=== PATIENT | female | born 1950 ===

== ENCOUNTER 2016-10-18 11:48 | Emergency (ER) | payer OTHER ==
[2016-10-18 12:08] VITALS: O2SAT 98
--- NOTE | 2016-10-18 13:48 | ED PDOC ---
HPI: General Adult Chief Complaint (Provider): sent by pcp for abn ekg History Per: Patient History/Exam Limitations: no limitations <Bunny Puri - Last Filed: 10/21/16 15:22> <Rangel Claudio - Last Filed: 10/22/16 09:12> Time Seen by Provider: 10/18/16 12:24 Chief Complaint (Nursing): Abnormal Labs Additional Complaint(s): 65 year old female with no significant past medical history sent to ED by PCP for abnormal ECG. Never had ECG in the past, no hx of SC or heart disease. No history of hospitalization. She denies any chest pain, abdominal pain, nausea or dizziness at present. She feels well. Takes naproxen/tylenol for hip pain that is chronic. No history of HTN, HLD, DM. (Bunny Puri) Supervising Attending Note <Bunny Puri - Last Filed: 10/21/16 15:22> - Supervising Attending Note The Documented history was done by the: Physician Pest Technician, Attending Physician The documented physical exam was done by the: Physician Pest Technician, Attending Physician The documented procedures were done by the: Physician Pest Technician, Attending Physician - Attestation: I have personally seen and examined this patient.: Yes I have fully participated in the care of the patient.: Yes I have reviewed all pertinent clinical information, including history, physical exam and plan: Yes <Rangel Claudio - Last Filed: 10/22/16 09:12> - Notes: Notes:: y/o F sent in by medical clinic for abnormal ecg, pt has no sx, all labs and trop neg advise close f/u with medical clinic (Rangel Claudio) Past Medical History - Surgical History Surgical History: No Surg Hx - Family History Family History: States: Unknown Family Hx - Living Arrangements Living Arrangements: With Family - Social History Current smoker - smoking cessation education provided: No Alcohol: None <Bunny Puri - Last Filed: 10/21/16 15:22> <Rangel Claudio - Last Filed: 10/22/16 09:12> Vital Signs: Last Vital Signs Temp 97.6 F 10/18/16 17:16 Pulse 71 10/21/16 15:22 Resp 19 10/18/16 17:16 BP 126/78 10/18/16 17:16 Pulse Ox 98 10/21/16 15:22 - Home Medications Home Medications: Ambulatory Orders Medication Instructions Recorded No Known Home Med 10/18/16 - Allergies Allergies/Adverse Reactions: Allergies Allergy/AdvReac Type Severity Reaction Status Date / Time aspirin Allergy SHORTNESS Verified 10/18/16 12:06 OF BREATH Review of Systems Constitutional: Negative for: Fever, Chills, Sweats Eyes: Negative for: Vision Change ENT: Negative for: Ear Discharge, Nose Discharge Cardiovascular: Negative for: Chest Pain, Palpitations, Orthopnea, Edema, Light Headedness Respiratory: Negative for: Cough, Shortness of Breath, SOB with Exertion Gastrointestinal: Positive for: Nausea (occasional, not now), Abdominal Pain ( with nausea, not now). Negative for: Vomiting, Diarrhea, Constipation Musculoskeletal: Positive for: Leg Pain (hips b/l, chronic) Skin: Negative for: Rash Neurological: Negative for: Weakness, Numbness, Incoordination <Bunny Puri - Last Filed: 10/21/16 15:22> Physical Exam - Reviewed Vital Signs Reviewed: Yes - Physical Exam Appears: Positive for: No Acute Distress Head Exam: Positive for: NORMAL INSPECTION Skin: Positive for: Normal Color, Warm, Dry Eye Exam: Positive for: Normal appearance ENT: Positive for: Other (poor dentition) Neck: Positive for: Normal Cardiovascular/Chest: Positive for: Regular Rate, Rhythm, Chest Non Tender. Negative for: Bradycardia, Tachycardia Respiratory: Positive for: Normal Breath Sounds. Negative for: Crackles, Rales , Rhonchi, Wheezing, Respiratory Distress Gastrointestinal/Abdominal: Positive for: Soft. Negative for: Tenderness, Distended, Guarding Extremity: Positive for: Other (cold from ankles distally). 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 Negative for: Motor/Sensory Deficits <Bunny Puri - Last Filed: 10/21/16 15:22> - Laboratory Results Result Diagrams: 10/18/16 13:30 10/18/16 13:30 - ECG ECG: Positive for: Interpreted By Me, Viewed By Me ECG Rhythm: Positive for: Sinus Rhythm, Right Bundle Branch Block (incomplete) Rate: 71 O2 Sat by Pulse Oximetry: 98 Pulse Ox Interpretation: Normal <Bunny Puri - Last Filed: 10/21/16 15:22> - Laboratory Results Result Diagrams: 10/18/16 13:30 10/18/16 13:30 <Rangel Claudio - Last Filed: 10/22/16 09:12> - Progress ED Course And Treament: rule out ACS * ekg reviewed * cbc * cmp * troponin * case d/w Dr. Claudio CBC : WNL CMP: K+:3.5 Troponin: negative Patient asymptomatic. stable for discharge above findings discussed with Dr. Claudio (Bunny Puri) Disposition <Bunny Puri - Last Filed: 10/21/16 15:22> - Patient ED Disposition Is Patient to be Admitted: No Counseled Patient/Family Regarding: Studies Performed, Diagnosis, Need For Followup - Disposition Disposition Time: 15:30 <Rangel Claudio - Last Filed: 10/22/16 09:12> - Clinical Impression Clinical Impression: ECG abnormality - Disposition Referrals: [facility] [Outside] Condition: FAIR Additional Instructions: Patient to follow up with [facility] within 1 week. Instructions: Electrocardiogram (GEN) Forms: [facility] ([facility]wana) Print Language: PAKISTANI
[2016-10-18 14:11] LABS: HEMATOCRIT 36.9 % (34.0-47.0); MEAN CELL VOLUME 95.3 fl (81.0-99.0); MEAN CORPUSCULAR HEMOGLOBIN 31.6 pg (27.0-31.0); MEAN CORPUSCULAR HGB CONC 33.1 g/dL (33.0-37.0); RED CELL DISTRIBUTION WIDTH 13.5 % (11.5-14.5); WHITE BLOOD COUNT 7.3 K/uL (4.8-10.8)
[2016-10-18 14:20] LABS: ALB/GLOB RATIO 1.2 (1.0-2.1); ALKALINE PHOSPHATASE 86 U/L (38-126); ALT/SGPT 40 U/L (9-52); AST/SGOT 30 U/L (14-36); BILIRUBIN,TOTAL 0.4 mg/dl (0.2-1.3); BLOOD UREA NITROGEN 15 mg/dl (7-17); CALCIUM 9.6 mg/dL (8.4-10.2); CARBON DIOXIDE 27 mmol/L (22-30); CHLORIDE 106 mmol/L (98-107); GFR AFRICAN-AMERICAN > 60; GLUCOSE,RANDOM 93 mg/dL (65-105); POTASSIUM 3.5 MMOL/L (3.6-5.0); SODIUM 141 mmol/l (132-148); TOTAL PROTEIN 7.4 G/DL (6.3-8.2)
[2016-10-18 17:17] VITALS: BP 126/78; RESP 19; TEMP 97.6
[2016-10-21 15:23] VITALS: PULSE 71
== END 2016-10-18 17:17 | disposition home or self-care (01) ==
LOC: H.ER 11:48
DX: R94.31 Abnormal electrocardiogram [ECG] [EKG] (principal)

== ENCOUNTER 2017-09-08 05:21 | Inpatient (IN) | payer MEDICAID, SELFPAY ==
[2017-09-08 06:20] LABS: BASO # 0.1 K/uL (0.0-0.2); BASO % 1.4 % (0.0-2.0); EOS # 0.4 K/uL (0.0-0.7); EOS % 5.7 % (0.0-4.0); HEMOGLOBIN 12.2 g/dL (12.0-16.0); LYMPH # 2.6 K/uL (1.0-4.3); MEAN CELL VOLUME 96.3 fl (81.0-99.0); MEAN CORPUSCULAR HEMOGLOBIN 32.5 pg (27.0-31.0); MEAN CORPUSCULAR HGB CONC 33.8 g/dL (33.0-37.0); MEAN PLATELET VOLUME 7.5 fl (7.2-11.7); MONO # 0.6 K/uL (0.0-0.8); NEUT # 3.3 K/uL (1.8-7.0); NEUT % 46.9 % (50.0-75.0); RBC 3.76 Mil/uL (3.80-5.20); RED CELL DISTRIBUTION WIDTH 12.9 % (11.5-14.5); WHITE BLOOD COUNT 7.1 K/uL (4.8-10.8)
[2017-09-08 06:32] LABS: BLOOD UREA NITROGEN 16 mg/dl (7-17); CALCIUM 9.5 mg/dL (8.4-10.2); GFR AFRICAN-AMERICAN > 60; GFR NON-AFRICAN AMERICAN > 60
--- NOTE | 2017-09-08 06:32 | ED PDOC ---
HPI: General Adult Time Seen by Provider: 09/08/17 05:22 Chief Complaint (Nursing): Hip Pain History Per: Patient History/Exam Limitations: no limitations Onset/Duration Of Symptoms: Days Additional Complaint(s): Patient has longstanding history of RA presenting with hip pain, worse on the right. Was told by her PMD that if the pain is worsening to come to the ER for evaluation. Denies falls, fever, swelling, chills, nausea, vomiting, diarrhea. 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), HTN ("diet controlled") - Family History Family History: States: Unknown Family Hx - Home Medications Home Medications: Ambulatory Orders Medication Instructions Recorded No Known Home Med 10/18/16 - Allergies Allergies/Adverse Reactions: Allergies Allergy/AdvReac Type Severity Reaction Status Date / Time aspirin Allergy SHORTNESS Verified 10/18/16 12:06 OF BREATH Review of Systems ROS Statement: Except As Marked, All Systems Reviewed And Found Negative Musculoskeletal: Positive for: Other (Hip pain) Physical Exam - Reviewed Nursing Documentation Reviewed: Yes Vital Signs Reviewed: Yes - Physical Exam Appears: Positive for: Well, Non-toxic, No Acute Distress Head Exam: Positive for: ATRAUMATIC, NORMAL INSPECTION, NORMOCEPHALIC Skin: Positive for: Normal Color, Warm, DRY Eye Exam: Positive for: EOMI, Normal appearance, PERRL ENT: Positive for: Normal ENT Inspection Neck: Positive for: Normal, Painless ROM Cardiovascular/Chest: Positive for: Regular Rate, Rhythm Respiratory: Positive for: CNT, Normal Breath Sounds Gastrointestinal/Abdominal: Positive for: Normal Exam, Soft Back: Positive for: Normal Inspection Extremity: Positive for: Normal ROM. Negative for: Tenderness, Pedal Edema, Deformity, Swelling Neurologic/Psych: Positive for: Alert, Oriented - Laboratory Results Result Diagrams: 09/08/17 06:15 - ECG O2 Sat by Pulse Oximetry: 100 Pulse Ox Interpretation: Normal Medical Decision Making Medical Decision MakinAM Patient to be evaluated by orthopedics for severe RA. Will get labs, xrays. Family practice aware. Disposition - Clinical Impression Clinical Impression: Rheumatoid arthritis - Disposition Referrals: Ean Brown MD [Primary Care Provider] - Disposition Time: 06:32 Condition: FAIR
[2017-09-08 06:43] LABS: INR 0.9 (0.9-1.2); PARTIAL THROMBOPLASTIN TIME 29.4 Seconds (25.6-37.1)
--- NOTE | 2017-09-08 07:03 | CP.PCM.HP ---
History of Present Illness - History of Present Illness History of Present Illness: CC: R hip pain HPI: 66 YO female with PMH of osteoarthritis, prediabetes (diet controlled) presents to [facility] ED for R hip pain and R hip surgery. Pt states that she has had b/l hip pain for years and it has worsened in the past year. Denies chest pain, dyspnea, n/v/d/c, fever and chills. MD: JULIAN PMH: osteoarthritis, prediabetes SurgH: cataract surgery FH: hx of MO in father SH: denies ETOH, smoking and illicit drug use Allergies: ASA and ibuprofen-difficulty breathing Meds: Tylenol PRN ED: Labs: 7.1>12.2/36.2<256 PT/INR/PTT: 10.0/0.9/29.4 CMP: 142/3.5, 109/24, 16/0.8, 135 Type&screen: O neg, ab neg Present on Admission - Present on Admission Any Indicators Present on Admission: No Review of Systems - Constitutional Constitutional: absent: Headache - Cardiovascular Cardiovascular: absent: Chest Pain, Dyspnea - Respiratory Respiratory: absent: Cough, Dyspnea - Gastrointestinal Gastrointestinal: absent: Abdominal Pain - Genitourinary Genitourinary: absent: Difficulty Urinating, Dysuria - Musculoskeletal Musculoskeletal: Other (B/l hip pain ) - Neurological Neurological: absent: Dizziness, Headaches Past Patient History - Past Social History Smoking Status: Never Smoked Alcohol: None Drugs: Denies Home Situation {Lives}: With Family - CARDIAC Hx Hypertension: Yes ("diet controlled") - HEENT Hx Cataracts: Yes - ENDOCRINE/METABOLIC Hx Endocrine Disorders: Yes Other/Comment: "pre diabetic" - diet controlled - MUSCULOSKELETAL/RHEUMATOLOGICAL Hx Arthritis: Yes (severe osteoarthritis of bilateral hips R>L) - GENITOURINARY/GYNECOLOGICAL Hx Genitourinary Disorders: Yes Other/Comment: Hx Bartholyn cyst - PSYCHIATRIC Hx Substance Use: No - SURGICAL HISTORY Hx Surgeries: Yes Hx Eye Surgery: Yes (for cataract) Other/Comment: Bartholin cyst removal - ANESTHESIA Hx Anesthesia: Yes Hx Anesthesia Reactions: No Hx Malignant Hyperthermia: No Meds Allergies/Adverse Reactions: Allergies Allergy/AdvReac Type Severity Reaction Status Date / Time aspirin Allergy SHORTNESS Verified 10/18/16 12:06 OF BREATH ibuprofen Allergy SHORTNESS Verified 09/08/17 08:35 OF BREATH Physical Exam - Constitutional Appears: No Acute Distress - Head Exam Head Exam: ATRAUMATIC, NORMAL INSPECTION - Eye Exam Eye Exam: EOMI, Normal appearance - ENT Exam ENT Exam: Mucous Membranes Moist - Respiratory Exam Respiratory Exam: Clear to Auscultation Bilateral. absent: Rales, Rhonchi, Wheezes - Cardiovascular Exam Cardiovascular Exam: REGULAR RHYTHM, +S1, +S2 - GI/Abdominal Exam GI & Abdominal Exam: Normal Bowel Sounds, Soft. absent: Distended, Tenderness - Extremities Exam Extremities exam: Negative for: calf tenderness, pedal edema Additional comments: R hip; dressing intact, clean and dry. Moving feet and legs, warm, good cap refill b/l - Neurological Exam Neurological exam: Alert, Oriented x3 - Psychiatric Exam Psychiatric exam: Normal Affect, Normal Mood - Skin Skin Exam: Dry, Intact, Normal Color, Warm Results - Vital Signs Recent Vital Signs: Last Vital Signs Temp 98.6 F 09/08/17 05:41 Pulse 78 09/08/17 05:41 Resp 16 09/08/17 05:41 BP 133/81 09/08/17 05:41 Pulse Ox 100 09/08/17 06:32 - Labs Result Diagrams: 09/08/17 06:15 09/08/17 06:15 Labs: Laboratory Results - last 24 hr 09/08/17 09/08/17 09/08/17 06:00 06:15 06:15 WBC 7.1 RBC 3.76 L Hgb 12.2 Hct 36.2 MCV 96.3 MCH 32.5 H MCHC 33.8 RDW 12.9 Plt Count 256 MPV 7.5 Neut % (Auto) 46.9 L Lymph % (Auto) 37.0 [place] % (Auto) 9.0 Eos % (Auto) 5.7 H Baso % (Auto) 1.4 Neut # (Auto) 3.3 Lymph # (Auto) 2.6 [place] # (Auto) 0.6 Eos # (Auto) 0.4 Baso # (Auto) 0.1 PT INR APTT Sodium 142 Potassium 3.5 L Chloride 109 H Carbon Dioxide 24 Anion Gap 13 BUN 16 Creatinine 0.8 Est GFR ( Amer) > 60 Est GFR (Non-Af Amer) > 60 Random Glucose 104 Calcium 9.5 BBK History Checked Patient has bt 09/08/17 06:15 WBC RBC Hgb Hct MCV MCH MCHC RDW Plt Count MPV Neut % (Auto) Lymph % (Auto) [place] % (Auto) Eos % (Auto) Baso % (Auto) Neut # (Auto) Lymph # (Auto) [place] # (Auto) Eos # (Auto) Baso # (Auto) PT 10.0 INR 0.9 APTT 29.4 Sodium Potassium Chloride Carbon Dioxide Anion Gap BUN Creatinine Est GFR ( Amer) Est GFR (Non-Af Amer) Random Glucose Calcium BBK History Checked Assessment & Plan - Assessment and Plan (Free Text) Assessment: Assessment/Plan: 66 YO Female with PMHx of osteoarthritis and prediabetes is admitted for R hip pain. S/p R total hip replacement POD 0 R Hip pain -chronic -Ortho on consult -s/p R total hip replacement POD 0 -Pain management: tylenol, dilaudid, and percocet Osteoarthritis -chronic, stable -pain control Prediabetes -diet controlled -stable Dvt Prox -Lovenox sc
[2017-09-08] MEDS ORDERED: ceFAZolin IV 2 gm in Dextrose 4 GM/100 ML BAG IVPB ONE (07:20)
[2017-09-08] MEDS ORDERED: GELATIN SPONGE,ABSORB/PORCINE 1 EACH SPONGE TP ONE (07:20)
[2017-09-08] MEDS ORDERED: Bacitracin Ointment 30 GM TUBE ONE (07:20)
[2017-09-08] MEDS ORDERED: Thrombin Topical 5,000 Int Units Spray Kit ONE (07:20)
[2017-09-08] MEDS ORDERED: Midazolam 2 MG/2 ML VIAL ONE (07:34)
[2017-09-08] MEDS ORDERED: Propofol 10 mg/ml Inj (20 ML) ONE (07:34)
[2017-09-08] MEDS ORDERED: Lidocaine 1% 5ml Abboject IV ONE (07:35)
[2017-09-08] MEDS ORDERED: Lidocaine 4% (Laryng-O-Jet) Kit MM ONE (07:35)
[2017-09-08] MEDS ORDERED: Succinylcholine 200 mg/10 ml Inj IV ONE (07:35)
[2017-09-08] MEDS ORDERED: Rocuronium 10 mg/ml (5 ml) ONE ×2 (07:37→10:32)
[2017-09-08] MEDS ORDERED: ePHEDrine 50 mg/ml Inj ONE ×2 (07:37→11:45)
[2017-09-08] MEDS ORDERED: Phenylephrine 10 mg/ml Inj ONE (07:37)
[2017-09-08] MEDS ORDERED: Neostigmine 1:1000 (1 mg/ml) Inj ONE (07:43)
--- NOTE | 2017-09-08 07:43 | CP.PCM.CON ---
History of Present Illness - History of Present Illness History of Present Illness: Orthopedic consultation Dr. Choi 66F complains of severe right hip pain, worsening, with inability to ambulate without severe pain, presents to ER for worsening pain. No recent illness, no history of bleeding disorder or blood clots or stents. Patient has prior conservative mgmt of DJD of hip with continued pain. Risks/benefits/alternatives of total hip replacement explained to patient by Dr. Choi, patient verbalized understanding and consents to procedure. Review of Systems - Review of Systems All systems: reviewed and no additional remarkable complaints except - Musculoskeletal Musculoskeletal: As Per HPI Past Patient History - Past Medical History & Family History Past Medical History?: Yes - Past Social History Smoking Status: Never Smoked - CARDIAC Hx Hypertension: Yes ("diet controlled") - HEENT Hx Cataracts: Yes - ENDOCRINE/METABOLIC Hx Endocrine Disorders: Yes Other/Comment: "pre diabetic" - diet controlled - MUSCULOSKELETAL/RHEUMATOLOGICAL Hx Arthritis: Yes (severe osteoarthritis of bilateral hips R>L) - GENITOURINARY/GYNECOLOGICAL Hx Genitourinary Disorders: Yes Other/Comment: Hx Bartholyn cyst - PSYCHIATRIC Hx Substance Use: No - SURGICAL HISTORY Hx Surgeries: Yes Hx Eye Surgery: Yes (for cataract) Other/Comment: Bartholin cyst removal - ANESTHESIA Hx Anesthesia: Yes Hx Anesthesia Reactions: No Hx Malignant Hyperthermia: No Meds Allergies/Adverse Reactions: Allergies Allergy/AdvReac Type Severity Reaction Status Date / Time aspirin Allergy SHORTNESS Verified 10/18/16 12:06 OF BREATH Physical Exam - Constitutional Appears: Well, No Acute Distress - Respiratory Exam Respiratory Exam: NORMAL BREATHING PATTERN - Extremities Exam Additional comments: calves soft NT neg homans +ROM ankle/toes sensation intact +DP/PT pulses - Neurological Exam Neurological exam: Alert, Oriented x3 - Psychiatric Exam Psychiatric exam: Normal Affect, Normal Mood - Skin Skin Exam: Dry, Intact, Normal Color, Warm Results - Vital Signs Recent Vital Signs: Last Vital Signs Temp 97.7 F 09/08/17 07:18 Pulse 78 09/08/17 05:41 Resp 16 09/08/17 05:41 BP 133/81 09/08/17 05:41 Pulse Ox 100 09/08/17 06:32 - Labs Result Diagrams: 09/08/17 06:15 09/08/17 06:15 Labs: Laboratory Results - last 24 hr 09/08/17 09/08/17 09/08/17 06:00 06:15 06:15 WBC 7.1 RBC 3.76 L Hgb 12.2 Hct 36.2 MCV 96.3 MCH 32.5 H MCHC 33.8 RDW 12.9 Plt Count 256 MPV 7.5 Neut % (Auto) 46.9 L Lymph % (Auto) 37.0 [place] % (Auto) 9.0 Eos % (Auto) 5.7 H Baso % (Auto) 1.4 Neut # (Auto) 3.3 Lymph # (Auto) 2.6 [place] # (Auto) 0.6 Eos # (Auto) 0.4 Baso # (Auto) 0.1 PT INR APTT Sodium 142 Potassium 3.5 L Chloride 109 H Carbon Dioxide 24 Anion Gap 13 BUN 16 Creatinine 0.8 Est GFR ( Amer) > 60 Est GFR (Non-Af Amer) > 60 Random Glucose 104 Calcium 9.5 BBK History Checked Patient has bt 09/08/17 06:15 WBC RBC Hgb Hct MCV MCH MCHC RDW Plt Count MPV Neut % (Auto) Lymph % (Auto) [place] % (Auto) Eos % (Auto) Baso % (Auto) Neut # (Auto) Lymph # (Auto) [place] # (Auto) Eos # (Auto) Baso # (Auto) PT 10.0 INR 0.9 APTT 29.4 Sodium Potassium Chloride Carbon Dioxide Anion Gap BUN Creatinine Est GFR ( Amer) Est GFR (Non-Af Amer) Random Glucose Calcium BBK History Checked Assessment & Plan (1) Primary osteoarthritis of right hip Assessment and Plan: NPO for OR low risk as per last pre op eval at [facility] d/w Dr. Choi, agrees with above Status: Acute
[2017-09-08] MEDS ORDERED: Tranexamic Acid 1,000 MG in Sodium Chloride 0.9% 100 ML IVPB SCH (08:00)
[2017-09-08] MEDS ORDERED: Morphine 1 mg/ml preservative-free Inj(Duramorph) ONE (08:06)
--- NOTE | 2017-09-08 08:17 | RAD ---
PROCEDURE: HISTORY: R hip pain, hx of arthritis COMPARISON: 12/28/2017 TECHNIQUE: AP view of the pelvis and applicable frog leg views obtained. FINDINGS: . Bilateral superolateral hip joint space narrowing: Bilateral superolateral and lesser inferomedial acetabular spurring. Bilateral coalescence of sub chondral cystic changes present. There is mild prominence and cortical thickening of the right iliopectineal line - more conspicuous on this exam than before and mild right acetabular protrusio. No fracture or dislocation appreciated. Inferior lumbar spine spurring Stool retention. IMPRESSION: Bilateral hip arthrosis. No fracture or dislocation appreciated. Right acetabular protrusio and mild right iliopectineal line thickening . Paget's disease not excluded
[2017-09-08] MEDS ORDERED: HYDROmorphone 0.5 mg/0.5 ml ISec IVP PRN (08:23)
[2017-09-08] MEDS ORDERED: Lactated Ringer's 1,000 ML IV ONE ×3 (09:44→11:30)
[2017-09-08] MEDS ORDERED: Lactated Ringer's 500 ML IV ONE ×4 (09:58→12:23)
[2017-09-08] MEDS ORDERED: Bacitracin OINT 15GM TOP ONE (12:15)
[2017-09-08] MEDS ORDERED: Oxycodone/Acetaminophen 5/325 mg Tab PO PRN (12:23)
[2017-09-08] MEDS ORDERED: DiphenhydrAMINE 50 mg/ml Inj IVP PRN (12:23)
[2017-09-08] MEDS ORDERED: oxyCODONE 5 mg Immediate Release Tab PO PRN (12:31)
--- NOTE | 2017-09-08 12:44 | PCM.SURG1 ---
Surgeon's Initial Post Op Note - Surgeon's Notes Surgeon: Benito Choi MD [employer] Mechanic: Vanessa Shaw PA-C, Michoacano Meng PA-C Type of Anesthesia: General Endo Anesthesia Administered By: Dr. Truong Pre-Operative Diagnosis: Right hip degenerative joint disease Operative Findings: same Post-Operative Diagnosis: same Operation Performed: 1. Right total hip replacement anterior approach. 2. Iliopsoas release. 3. Autograft bone graft to acetabulum and femur. 4. Femoral neck osteotomy Specimen/Specimens Removed: femoral head. loose body Estimated Blood Loss: EBL {In ML}: 300 Blood Products Given: N/A Drains Used: No Drains Post-Op Condition: Fair Date of Surgery/Procedure: 09/08/17 Time of Surgery/Procedure: 12:44
--- NOTE | 2017-09-08 13:15 | RAD ---
PROCEDURE: HISTORY: pt in pacu s/p THR COMPARISON: 09/08/2017 at 0605 hours TECHNIQUE: AP view of the pelvis and applicable frog leg views obtained. FINDINGS: Interval right total hip replacement. Acetabular and femoral components appear anatomically aligned. The prior right acetabular spurring is less now than before. The right iliopectineal cortical thickening and mild right acetabular growth extrusions appearance is renoted. Soft tissue lucencies and skin savanna pattern or with recent postop status. Left arthro pathic changes similar IMPRESSION: Interval right total hip replacement as above
[2017-09-08] MEDS: ceFAZolin 1 GM in Sodium Chloride 0.9% 100 ML IVPB SCH (17:04)
--- NOTE | 2017-09-08 17:08 | CP.PCM.PCO ---
Addendum Addendum: Pt is seen and evaluated Post-op R total hip replacement. Family is present by bedside. Pt is doing well, not in any pain currently, remains hemodynamically stable. R hip is noted, dressing is clean, dry and intact. VS: BP 120/60, RR 96, RR 18, O2 96% RA 09/08/17 17:21
[2017-09-08] MEDS: Sodium Chloride 0.9% 1,000 ML IV SCH (17:20)
[2017-09-09] MEDS: ceFAZolin 1 GM in Sodium Chloride 0.9% 100 ML IVPB SCH (00:30)
[2017-09-09] MEDS: Sodium Chloride 0.9% 1,000 ML IV SCH ×2 (04:30→05:25)
[2017-09-09 06:43] LABS: MEAN CELL VOLUME 97.6 fl (81.0-99.0); MEAN CORPUSCULAR HEMOGLOBIN 32.9 pg (27.0-31.0); MEAN CORPUSCULAR HGB CONC 33.7 g/dL (33.0-37.0); RBC 2.43 Mil/uL (3.80-5.20); RED CELL DISTRIBUTION WIDTH 12.9 % (11.5-14.5); WHITE BLOOD COUNT 10.8 K/uL (4.8-10.8)
[2017-09-09 06:58] LABS: BLOOD UREA NITROGEN 8 mg/dl (7-17); GFR AFRICAN-AMERICAN > 60; GFR NON-AFRICAN AMERICAN > 60
--- NOTE | 2017-09-09 07:43 | CP.PCM.PN ---
Subjective - Date & Time of Evaluation Date of Evaluation: 09/09/17 Time of Evaluation: 07:43 - Subjective Subjective: S/p total R Hip placement POD1 No acute overnight events. Pt states that she has pain in her R hip, pain is worse with movement. Pain states that she is very dizzy after taking the oxycodone. Objective - Vital Signs/Intake and Output Vital Signs (last 24 hours): Temp Pulse Resp BP Pulse Ox 98.2 F 82 20 103/56 L 98 09/09/17 03:44 09/09/17 03:44 09/09/17 03:44 09/09/17 03:44 09/09/17 03:44 - Medications Medications: Current Medications Acetaminophen (Tylenol 325mg Tab) 650 mg PO Q6 [facility] Last Admin: 09/09/17 05:26 Dose: 650 mg Diphenhydramine HCl (Benadryl) 50 mg IVP Q6 PRN PRN Reason: Itching / Pruritus Docusate Sodium (Colace) 100 mg PO BID [facility] Last Admin: 09/08/17 17:03 Dose: 100 mg Enoxaparin Sodium (Lovenox) 40 mg SC DAILY [facility] PRN Reason: Protocol Hydromorphone HCl (Dilaudid) 0.5 mg IVP Q4 PRN PRN Reason: Pain, severe (8-10) Ondansetron HCl (Zofran Inj) 4 mg IVP Q6 PRN PRN Reason: Nausea/Vomiting Last Admin: 09/08/17 17:15 Dose: 4 mg Oxycodone HCl (Oxycodone Immediate Release Tab) 5 mg PO Q4H PRN PRN Reason: Pain, moderate (4-7) - Labs Labs: 09/09/17 06:15 09/09/17 06:15 PT 10.0 Seconds (9.8-13.1) 09/08/17 06:15 INR 0.9 (0.9-1.2) 09/08/17 06:15 APTT 29.4 Seconds (25.6-37.1) 09/08/17 06:15 - Constitutional Appears: No Acute Distress - Head Exam Head Exam: NORMAL INSPECTION - Eye Exam Eye Exam: EOMI, Normal appearance - ENT Exam ENT Exam: Mucous Membranes Moist - Respiratory Exam Respiratory Exam: Clear to Ausculation Bilateral, NORMAL BREATHING PATTERN. absent: Wheezes - Cardiovascular Exam Cardiovascular Exam: REGULAR RHYTHM, +S1, +S2 - GI/Abdominal Exam GI & Abdominal Exam: Soft, Normal Bowel Sounds. absent: Tenderness - Extremities Exam Extremities Exam: Normal Inspection. absent: Calf Tenderness, Pedal Edema Additional comments: R hip; dressing intact, no discharge, surrounding skin is intact-no edema or erythema. L: moving LLE SCDS and compression stocking - Back Exam Back Exam: NORMAL INSPECTION - Neurological Exam Neurological Exam: Alert, Awake, Oriented x3 - Psychiatric Exam Psychiatric exam: Normal Affect, Normal Mood - Skin Skin Exam: Dry, Intact, Normal Color, Warm Assessment and Plan - Assessment and Plan (Free Text) Assessment: Assessment/Plan: 66 YO Female with PMHx of osteoarthritis and prediabetes is admitted for R hip pain. S/p R total hip replacement POD 1. Will optimize pain management. R Hip pain -chronic -Ortho on consult -s/p R total hip replacement POD 1 -pain management: tylenol, toradol, and dilaudid -claudy d/c oxycodone, and bendryl -PT/OT Dizziness -likely 2/2 pain meds -will d/c oxycodone, and benadryl Normocytic anemia -acute, likely 2/2 to blood loss, hemodilution, lab error -hb/hct 11/14 down from 12.2/36.2 -will repeat Osteoarthritis -chronic, stable -pain control Prediabetes -diet controlled -stable Dvt Prox -Lovenox sc
[2017-09-09] MEDS: Enoxaparin 40 mg Syringe SC SCH (08:46)
--- NOTE | 2017-09-09 09:57 | CP.PCM.PN ---
Subjective - Date & Time of Evaluation Date of Evaluation: 09/09/17 Time of Evaluation: 09:51 - Subjective Subjective: Patient with daughter at bedside. Patient states she has only a little pain in her hip today. Tolerating PO, voiding.Denies CP/SOB/dizziness. Objective - Vital Signs/Intake and Output Vital Signs (last 24 hours): Temp Pulse Resp BP Pulse Ox 98.2 F 93 H 18 129/61 97 09/09/17 08:27 09/09/17 08:27 09/09/17 08:27 09/09/17 08:27 09/09/17 08:27 - Medications Medications: Current Medications Acetaminophen (Tylenol 325mg Tab) 650 mg PO Q6 [facility] Last Admin: 09/09/17 05:26 Dose: 650 mg Diphenhydramine HCl (Benadryl) 50 mg IVP Q6 PRN PRN Reason: Itching / Pruritus Docusate Sodium (Colace) 100 mg PO BID [facility] Last Admin: 09/09/17 08:46 Dose: 100 mg Enoxaparin Sodium (Lovenox) 40 mg SC DAILY [facility] PRN Reason: Protocol Last Admin: 09/09/17 08:46 Dose: 40 mg Hydromorphone HCl (Dilaudid) 0.5 mg IVP Q4 PRN PRN Reason: Pain, severe (8-10) Ondansetron HCl (Zofran Inj) 4 mg IVP Q6 PRN PRN Reason: Nausea/Vomiting Last Admin: 09/08/17 17:15 Dose: 4 mg Oxycodone HCl (Oxycodone Immediate Release Tab) 5 mg PO Q4H PRN PRN Reason: Pain, moderate (4-7) Last Admin: 09/09/17 08:52 Dose: 5 mg - Labs Labs: 09/09/17 06:15 09/09/17 06:15 PT 10.0 Seconds (9.8-13.1) 09/08/17 06:15 INR 0.9 (0.9-1.2) 09/08/17 06:15 APTT 29.4 Seconds (25.6-37.1) 09/08/17 06:15 - Extremities Exam Additional comments: right hip: dressing changed, thigh swollen, incision intact, scant drainage, no erythema. +ROM ankle/toes, sensation intact, calves soft NT neg homans Assessment and Plan (1) Primary osteoarthritis of right hip Assessment & Plan: POD#1 s/p right THR ant ortho stable PT/OT VTE prophr with lovenox x 10days upon d/c walker for ambulation f/u Dr. Choi 10-14 days call for appointment patient will continue outpt PT at [facility] where she is estabished patient d/w DR. Choi, agrees with above Status: Acute
--- NOTE | 2017-09-09 11:06 | OP ---
PROCEDURE DATE: 09/09/2017 PREOPERATIVE DIAGNOSIS: Severe osteoarthritis of the right hip. POSTOPERATIVE DIAGNOSIS: Severe osteoarthritis of the right hip. PROCEDURES: 1. Right total hip replacement arthroplasty. 2. Femoral neck osteotomy. 3. Release of iliopsoas tendon. 4. Autograft bone graft to the femur and acetabulum. SURGEON: Minor Choi MD. RESEARCH DIRECTOR: Susana Shaw PA-C, Bravo Meng PA-C. BLOOD LOSS: Approximately 275 mL. COMPLICATIONS: None. DRAINS: None. OPERATIVE INDICATIONS: Erica Costello is a 66-year-old woman who presents now with two years of severe pain with and with five years of pain in the hip. The patient has failed conservative management at the clinic including activity modification, antiinflammatory medication, conservative modalities. The patient's daughter's and patient want the surgery done desperately. Former clinic doctor ignored the case for two years, Dr. Mcclain. Pros, cons, risks, and benefits of total hip replacement arthroplasty were discussed. The possibility of leg length inequality, mechanical failure, infection, thromboembolic disease, secondary or tertiary surgery were discussed. The patient can no longer withstand the discomfort and wished the surgery to be accomplished. OPERATIVE PROCEDURE: After having obtained the informed consent and after having identified the site, side and procedure, a critical pause/time-out satisfactory induction of the anesthetic, the patient identified as Ms. Erica Costello, in the supine position in the [facility] traction positioner, right lower extremity was prepped and free draped in usual fashion for lower extremity surgery. Under the surgeon's direction, the fluoroscope was positioned, video images were generated, therapeutic decisions were made therefrom. Preoperative planning had been accomplished. Intraoperative planning is accomplished as well. Using a fluoroscopy preoperative radiographs. After sterilely prepping and draping after the satisfactory induction of regional and general anesthesia by Dr. Truong. After having identified the side, site, procedure and critical pause/time-out, after having obtained informed consent, the patient identified as Ms. Erica Costello. In the [facility] traction positioner, in a supine position, the right lower extremity was prepped and free draped in the usual fashion for lower extremity surgery. The incision was described one fingerbreadth distal to the ASIS, three fingerbreadths posteriorly, superficial tensor fasciae femoris muscle. Skin incision was carried down through the skin, subcutaneous tissue, the muscle belly was identified. Muscle was taken down from investing fascia and a Medacta retractor was placed. The posterior aspect of the rectus femoris was developed and this having been accomplished, the Medacta retractor was placed in horizontal attitude to identify the fascia. The fascia was carefully divided. It should be noted that a portion of the rectus femoris was released superiorly. This having been accomplished, the lateral femoral circumflex vessels are controlled using a Aquamantys. This having been accomplished, the site is excised, capsulotomy was accomplished and the capsule was elevated and protected and tagged with a stay suture. This having been accomplished the Medacta retractors were placed, the femoral neck osteotomy was accomplished very close to the level of the lesser trochanter. This having been accomplished in this traction because of the extremely short neck that this patient exhibits, femoral neck osteotomy having been planned full leg length as a separate procedure, it is entered as a separate billing code. Femoral neck osteotomy having been accomplished, external rotation identifies the cut femoral neck. Corkscrew was placed and the femoral head was removed from the acetabulum. This having been accomplished, the acetabulum was prepared and exposed. The modified Charnley retractor was placed, the angled Hohmann retractor was placed. Reaming was accomplished to a 52 mm cup at approximately 45 degrees of abduction and 10 to 15 degrees of anteversion. This having been accomplished, autograft bone grafting was accomplished. The reaming was denuded of articular cartilage and placed in the acetabulum. The cup was trialed and at this point, the cup was introduced in that attitude. The positioning was found to be acceptable and the cup was found to be stable. At this point in time, the attention was turned to the femur. With the femur in maximum external rotation, the pubofemoral ligament was released. The iliofemoral ligament was released and the area of the piriformis fossa was carefully developed and released as well. At this point in time, the femur was delivered with hyperextension, external rotation, and adduction. This having been accomplished successfully, the wound was thoroughly irrigated and canal was found with a aliya. The box chisel was used to remove a bridge of bone between the neck and the trochanter. This having been accomplished, the rasp was introduced in the appropriate-sized attitude. Reaming was accomplished. Broaching was accomplished to level 1 femoral component, which was found to be excellent, -3.5, 20-mm head with the 52 mm outer bearing, the hip was reduced and found to be stable in all planes. The grasper was removed. Under surgeon's direction, the fluoroscope was positioned, video images were generated, therapeutic decisions were made therefrom. The stem was introduced with the 28 mm -3.5 head and 52 mm outer bearing. The hip was reduced and found to be stable in all planes. FloSeal was used to ensure hemostasis. The capsule was replaced. The closure was accomplished in 0 Quill for the fascia, followed by 0 Quill savanna for skin, a compression dressings was applied. Postoperative x-rays reveal excellent position of the construct. The surgical goal could not have been achieved without the assistantship of Susana Geronimo and Bravo Meng. Minor Choi MD
[2017-09-09 15:26] LABS: HEMOGLOBIN 7.3 g/dL (12.0-16.0); MEAN CELL VOLUME 97.7 fl (81.0-99.0); MEAN CORPUSCULAR HEMOGLOBIN 32.9 pg (27.0-31.0); MEAN CORPUSCULAR HGB CONC 33.6 g/dL (33.0-37.0); RBC 2.23 Mil/uL (3.80-5.20); RED CELL DISTRIBUTION WIDTH 12.9 % (11.5-14.5); WHITE BLOOD COUNT 12.1 K/uL (4.8-10.8)
[2017-09-09] MEDS ORDERED: Potassium Chloride 20 mEq ER Tab PO ONE (17:12)
[2017-09-09] MEDS ORDERED: Sodium Chloride 0.9% 1,000 ML IV SCH (17:45)
--- NOTE | 2017-09-10 07:23 | CP.PCM.PN ---
Subjective - Date & Time of Evaluation Date of Evaluation: 09/10/17 Time of Evaluation: 07:23 - Subjective Subjective: 66F seen and examined at bedside with attending. s/p 2U PRBC transfusion and 1L bolus overnight without acute events. Pt denies any current dizziness, reports better pain control 4-6/10 and denies SOB, chest pain or palpitations. She is able to urinate and is tolerating PO. Objective - Vital Signs/Intake and Output Vital Signs (last 24 hours): Temp Pulse Resp BP Pulse Ox 36.6 C 85 17 105/61 99 09/10/17 05:50 09/10/17 05:50 09/10/17 05:50 09/10/17 05:50 09/10/17 05:50 - Medications Medications: Current Medications Acetaminophen (Tylenol 325mg Tab) 975 mg PO Q8 [facility] Last Admin: 09/10/17 00:18 Dose: 975 mg Docusate Sodium (Colace) 100 mg PO BID [facility] Last Admin: 09/09/17 17:04 Dose: 100 mg Enoxaparin Sodium (Lovenox) 40 mg SC DAILY [facility] PRN Reason: Protocol Last Admin: 09/09/17 08:46 Dose: 40 mg Hydromorphone HCl (Dilaudid) 0.5 mg IVP Q4 PRN PRN Reason: Pain, severe (8-10) Last Admin: 09/09/17 12:01 Dose: 0.5 mg Sodium Chloride (Sodium Chloride 0.9%) 1,000 mls @ 999 mls/hr IV .Q1H1M [facility] Stop: 09/10/17 17:37 Last Admin: 09/09/17 17:45 Dose: 999 mls/hr Ondansetron HCl (Zofran Inj) 4 mg IVP Q6 PRN PRN Reason: Nausea/Vomiting Last Admin: 09/08/17 17:15 Dose: 4 mg Tramadol HCl (Ultram) 50 mg PO Q6 [facility] Last Admin: 09/10/17 04:27 Dose: 50 mg - Labs Labs: 09/09/17 15:00 09/09/17 06:15 PT 10.0 Seconds (9.8-13.1) 09/08/17 06:15 INR 0.9 (0.9-1.2) 09/08/17 06:15 APTT 29.4 Seconds (25.6-37.1) 09/08/17 06:15 - Constitutional Appears: Non-toxic, No Acute Distress - Head Exam Head Exam: ATRAUMATIC, NORMAL INSPECTION - Eye Exam Eye Exam: Normal appearance Pupil Exam: PERRL - ENT Exam ENT Exam: Mucous Membranes Moist - Neck Exam Neck Exam: Normal Inspection - Respiratory Exam Respiratory Exam: Clear to Ausculation Bilateral, NORMAL BREATHING PATTERN - Cardiovascular Exam Cardiovascular Exam: REGULAR RHYTHM, +S1, +S2 - GI/Abdominal Exam GI & Abdominal Exam: Soft, Normal Bowel Sounds - Extremities Exam Extremities Exam: Normal Capillary Refill, Normal Inspection. absent: Pedal Edema Additional comments: [] Palpable pulses [] drsg with minimal drainage, anteriolateral RIGHT thigh with fullness/ minimal ecchymosis - Neurological Exam Neurological Exam: Alert, Awake, Oriented x3 - Psychiatric Exam Psychiatric exam: Normal Affect, Normal Mood - Skin Skin Exam: Dry, Warm Assessment and Plan - Assessment and Plan (Free Text) Assessment: 66F PMH severe Rt hip DJD POD#2 s/p Rt hip replacement. Yesterday patient noted to have a 4g drop in Hgb and symptomatic, so overnight was bolused 1L NS and transfused 2U PRBC without complications and an appropriate Hgb response this AM. Her pain yesterday was not adequately controlled but has improved after starting scheduled coverage with dilaudid for 8-10. Otherwise, patient is stable. Plan: Diet: Heart Healthy DVT Prophylaxis: SC Lovenox PT: Pending Acute Blood Loss Anemia: Monitor VS, Daily CBC, FOBT pending Rt Hip Repair POD#2: Dr Choi and ortho PA aware of transfusion, will f/u any further recommendations Hypokalemia: 40mEQ KCl PO x1 Dispo: [place] w/[place]patient [place] [facility] [place]o note
[2017-09-10] MEDS: Enoxaparin 40 mg Syringe SC SCH (08:58)
[2017-09-10 12:08] LABS: BLOOD UREA NITROGEN 7 mg/dl (7-17); CALCIUM 8.6 mg/dL (8.4-10.2); GFR AFRICAN-AMERICAN > 60; GFR NON-AFRICAN AMERICAN > 60
[2017-09-10 12:08] LABS: BASO # 0.1 K/uL (0.0-0.2); BASO % 0.4 % (0.0-2.0); EOS # 0.1 K/uL (0.0-0.7); EOS % 0.5 % (0.0-4.0); HEMOGLOBIN 10.6 g/dL (12.0-16.0); LYMPH # 2.6 K/uL (1.0-4.3); LYMPH % 18.2 % (20.0-40.0); MEAN CELL VOLUME 91.2 fl (81.0-99.0); MEAN CORPUSCULAR HEMOGLOBIN 30.7 pg (27.0-31.0); MEAN CORPUSCULAR HGB CONC 33.7 g/dL (33.0-37.0); MONO # 0.9 K/uL (0.0-0.8); MONO % 6.2 % (0.0-10.0); NEUT # 10.8 K/uL (1.8-7.0); NEUT % 74.7 % (50.0-75.0); NRBC % 0.1 % (0.0-0.0); RBC 3.46 Mil/uL (3.80-5.20); RED CELL DISTRIBUTION WIDTH 17.7 % (11.5-14.5); WHITE BLOOD COUNT 14.4 K/uL (4.8-10.8)
[2017-09-10] MEDS ORDERED: Potassium Chloride 20 mEq ER Tab PO ONE (12:55)
[2017-09-10] MEDS: HYDROmorphone 1 mg/ml ISec IVP PRN (13:59)
[2017-09-10] MEDS: Bacitracin OINT 15GM TOP SCH (18:44)
[2017-09-11] MEDS: HYDROmorphone 1 mg/ml ISec IVP PRN ×2 (00:57→10:43)
[2017-09-11 07:29] LABS: BLOOD UREA NITROGEN 7 mg/dl (7-17); CALCIUM 8.5 mg/dL (8.4-10.2); GFR AFRICAN-AMERICAN > 60; GFR NON-AFRICAN AMERICAN > 60
[2017-09-11 07:30] LABS: MEAN CELL VOLUME 91.9 fl (81.0-99.0); MEAN CORPUSCULAR HEMOGLOBIN 30.8 pg (27.0-31.0); MEAN CORPUSCULAR HGB CONC 33.5 g/dL (33.0-37.0); RBC 3.26 Mil/uL (3.80-5.20); RED CELL DISTRIBUTION WIDTH 17.8 % (11.5-14.5)
--- NOTE | 2017-09-11 08:44 | RAD ---
PROCEDURE: Intraoperative Fluoroscopy. HISTORY: RIGHT HIP FINDINGS: Fluoroscopic assistance was provided for right total hip replacement. Please refer to the operative report from Dr. Wyatt Steel.
[2017-09-11] MEDS: Bacitracin OINT 15GM TOP SCH ×2 (08:54→16:12)
[2017-09-11] MEDS: Enoxaparin 40 mg Syringe SC SCH (08:55)
--- NOTE | 2017-09-11 09:20 | CP.PCM.PN ---
Subjective - Date & Time of Evaluation Date of Evaluation: 09/11/17 Time of Evaluation: :18 - Subjective Subjective: s/p 2 units of PRBC 09/09, hb/hct stable post transfusion No acute overnight events. Pt states that she has a lot of pain this AM, last PO pain med 4AM, pt encouraged to ask for pain meds when needed. Dizziness, and nausea resolved at this time. Objective - Vital Signs/Intake and Output Vital Signs (last 24 hours): Temp Pulse Resp BP Pulse Ox 98.9 F 77 20 113/65 95 09/11/17 07:44 09/11/17 07:44 09/11/17 07:44 09/11/17 07:44 09/11/17 07:44 - Medications Medications: Current Medications Acetaminophen (Tylenol 325mg Tab) 975 mg PO Q8 [facility] Last Admin: 09/11/17 08:57 Dose: 975 mg Bacitracin (Bacitracin Oint) 1 applic TOP BID [facility] Last Admin: 09/11/17 08:54 Dose: 1 applic Docusate Sodium (Colace) 100 mg PO BID [facility] Last Admin: 09/11/17 08:54 Dose: 100 mg Enoxaparin Sodium (Lovenox) 40 mg SC DAILY [facility] PRN Reason: Protocol Last Admin: 09/11/17 08:55 Dose: 40 mg Hydromorphone HCl (Dilaudid) 0.5 mg IVP Q4 PRN PRN Reason: Pain, severe (8-10) Last Admin: 09/11/17 00:57 Dose: 0.5 mg Tramadol HCl (Ultram) 50 mg PO Q6 [facility] Last Admin: 09/11/17 09:00 Dose: 50 mg - Labs Labs: 09/11/17 05:30 09/11/17 05:30 PT 10.0 Seconds (9.8-13.1) 09/08/17 06:15 INR 0.9 (0.9-1.2) 09/08/17 06:15 APTT 29.4 Seconds (25.6-37.1) 09/08/17 06:15 - Constitutional Appears: No Acute Distress, Other (breathing comfortably in RA) - Head Exam Head Exam: NORMAL INSPECTION - Eye Exam Eye Exam: EOMI, Normal appearance - ENT Exam ENT Exam: Mucous Membranes Moist - Respiratory Exam Respiratory Exam: Clear to Ausculation Bilateral, NORMAL BREATHING PATTERN. absent: Wheezes - Cardiovascular Exam Cardiovascular Exam: REGULAR RHYTHM, +S1, +S2 - GI/Abdominal Exam GI & Abdominal Exam: Soft, Normal Bowel Sounds. absent: Tenderness - Extremities Exam Extremities Exam: absent: Pedal Edema Additional comments: edema and tenderness to palpation of the R thigh, mild erythma, normal temperature No exudates noted around incision site Small blistered noted in upper thigh around tape sites. - Neurological Exam Neurological Exam: Alert, Awake, Oriented x3 - Psychiatric Exam Psychiatric exam: Normal Affect, Normal Mood Assessment and Plan - Assessment and Plan (Free Text) Assessment: Assessment/Plan: 66 YO female with no sig PMH is admitted for R hip pain. S/p R total hip replacement, POD 3. Pain management. R hip pain, osteoarthritis -s/p total R hip replacement, POD 3 -pain management: cont tylenol, dilaudid, ultram -Ortho on board; stable, PT outpatient Acute symptomatic Anemia -resolved -likely 2/2 to acute blood loss -s/p 2 units of PRBC -h/h stable post transfusion Leukocytosis -acute, improving -likely 2/2 to acute inflammatory changes -remains afebrile Constipation -c/w colace BID -lactulose sta Prediabetes -diet controlled Prophyx -Lovenox Dispo -Home w/outpatient PT services at [facility] [place] as per ortho note
[2017-09-11] MEDS ORDERED: Petrolatum UD PAK TOP PRN (09:21)
[2017-09-11] MEDS ORDERED: Lactulose 10 gm/15 ml Syrup PO PRN (10:14)
[2017-09-12 00:27] VITALS: TEMP 98.3
[2017-09-12 06:30] LABS: BASO # 0.1 K/uL (0.0-0.2); BASO % 0.9 % (0.0-2.0); EOS # 0.4 K/uL (0.0-0.7); EOS % 4.3 % (0.0-4.0); HEMOGLOBIN 10.1 g/dL (12.0-16.0); LYMPH # 1.9 K/uL (1.0-4.3); LYMPH % 21.1 % (20.0-40.0); MEAN CELL VOLUME 91.7 fl (81.0-99.0); MEAN CORPUSCULAR HEMOGLOBIN 31.2 pg (27.0-31.0); MEAN PLATELET VOLUME 7.6 fl (7.2-11.7); MONO # 0.8 K/uL (0.0-0.8); MONO % 8.7 % (0.0-10.0); NEUT # 5.7 K/uL (1.8-7.0); RBC 3.25 Mil/uL (3.80-5.20); RED CELL DISTRIBUTION WIDTH 17.6 % (11.5-14.5); WHITE BLOOD COUNT 8.8 K/uL (4.8-10.8)
[2017-09-12 06:46] LABS: BLOOD UREA NITROGEN 9 mg/dl (7-17); CALCIUM 8.7 mg/dL (8.4-10.2); GFR AFRICAN-AMERICAN > 60; GFR NON-AFRICAN AMERICAN > 60
[2017-09-12 07:53] VITALS: BP 111/64; PULSE 75; RESP 18; O2SAT 98
--- NOTE | 2017-09-12 07:53 | CP.PCM.PN ---
Subjective - Date & Time of Evaluation Date of Evaluation: 09/12/17 Time of Evaluation: 07:53 - Subjective Subjective: Patient seen and examined at bedside comfortable. Pain is much improved. HGB stable. No new complaints. Objective - Vital Signs/Intake and Output Vital Signs (last 24 hours): Temp Pulse Resp BP Pulse Ox 98.3 F 75 18 111/64 98 09/12/17 07:52 09/12/17 07:52 09/12/17 07:52 09/12/17 07:52 09/12/17 07:52 - Medications Medications: Current Medications Acetaminophen (Tylenol 325mg Tab) 975 mg PO Q8 [facility] Last Admin: 09/12/17 00:42 Dose: 975 mg Bacitracin (Bacitracin Oint) 1 applic TOP BID [facility] Last Admin: 09/11/17 16:12 Dose: 1 applic Docusate Sodium (Colace) 100 mg PO BID [facility] Last Admin: 09/11/17 16:12 Dose: 100 mg Emollient Ointment (Vaseline Oint) 1 pkt TOP PRN PRN PRN Reason: Dry skin Enoxaparin Sodium (Lovenox) 40 mg SC DAILY [facility] PRN Reason: Protocol Last Admin: 09/11/17 08:55 Dose: 40 mg Hydromorphone HCl (Dilaudid) 0.5 mg IVP Q4 PRN PRN Reason: Pain, severe (8-10) Last Admin: 09/11/17 10:43 Dose: 0.5 mg Tramadol HCl (Ultram) 50 mg PO Q6 [facility] Last Admin: 09/12/17 04:25 Dose: 50 mg - Labs Labs: 09/12/17 05:25 09/12/17 05:25 PT 10.0 Seconds (9.8-13.1) 09/08/17 06:15 INR 0.9 (0.9-1.2) 09/08/17 06:15 APTT 29.4 Seconds (25.6-37.1) 09/08/17 06:15 - Extremities Exam Additional comments: R hip: Dressing CDI, wound CDI, mild swelling sensation intact SP/DP/TN motor intact EHL/FHL/TA/G pedal pulses intact comps soft NT Assessment and Plan (1) Primary osteoarthritis of right hip Assessment & Plan: POD# 4 s/p R BRANDON doing well -Dressings changed, maintain dressings until office visit -no shower -orthopedically stable for discharge -will continue outpatient PT at [facility] [place] -F/u in office within 7-10 days -above d/w Dr. Choi in agreement Status: Acute
[2017-09-12] MEDS: Enoxaparin 40 mg Syringe SC SCH (08:48)
[2017-09-12] MEDS: Bacitracin OINT 15GM TOP SCH ×2 (08:48→17:11)
--- NOTE | 2017-09-12 11:10 | CP.PCM.DIS ---
Provider - Provider Date of Admission: 09/08/17 05:47 Attending physician: Anne Claros MD Primary care physician: Ean Brown MD Consults: Ortho: Dr. Choi Time Spent in preparation of Discharge (in minutes): 20 Hospital Course - Lab Results Lab Results: Most Recent Lab Values WBC 8.8 K/uL (4.8-10.8) 09/12/17 05:25 RBC 3.25 Mil/uL (3.80-5.20) L 09/12/17 05:25 Hgb 10.1 g/dL (12.0-16.0) L 09/12/17 05:25 Hct 29.8 % (34.0-47.0) L 09/12/17 05:25 MCV 91.7 fl (81.0-99.0) 09/12/17 05:25 MCH 31.2 pg (27.0-31.0) H 09/12/17 05:25 MCHC 34.0 g/dL (33.0-37.0) 09/12/17 05:25 RDW 17.6 % (11.5-14.5) H 09/12/17 05:25 Plt Count 193 K/uL (130-400) 09/12/17 05:25 MPV 7.6 fl (7.2-11.7) 09/12/17 05:25 Neut % (Auto) 65.0 % (50.0-75.0) 09/12/17 05:25 Lymph % (Auto) 21.1 % (20.0-40.0) 09/12/17 05:25 [place] % (Auto) 8.7 % (0.0-10.0) 09/12/17 05:25 Eos % (Auto) 4.3 % (0.0-4.0) H 09/12/17 05:25 Baso % (Auto) 0.9 % (0.0-2.0) 09/12/17 05:25 Neut # (Auto) 5.7 K/uL (1.8-7.0) 09/12/17 05:25 Lymph # (Auto) 1.9 K/uL (1.0-4.3) 09/12/17 05:25 [place] # (Auto) 0.8 K/uL (0.0-0.8) 09/12/17 05:25 Eos # (Auto) 0.4 K/uL (0.0-0.7) 09/12/17 05:25 Baso # (Auto) 0.1 K/uL (0.0-0.2) 09/12/17 05:25 PT 10.0 Seconds (9.8-13.1) 09/08/17 06:15 INR 0.9 (0.9-1.2) 09/08/17 06:15 APTT 29.4 Seconds (25.6-37.1) 09/08/17 06:15 Sodium 138 mmol/l (132-148) 09/12/17 05:25 Potassium 3.6 MMOL/L (3.6-5.0) 09/12/17 05:25 Chloride 105 mmol/L (98-107) 09/12/17 05:25 Carbon Dioxide 28 mmol/L (22-30) 09/12/17 05:25 Anion Gap 9 (10-20) L 09/12/17 05:25 BUN 9 mg/dl (7-17) 09/12/17 05:25 Creatinine 0.6 mg/dl (0.7-1.2) L 09/12/17 05:25 Est GFR ( Amer) > 60 09/12/17 05:25 Est GFR (Non-Af Amer) > 60 09/12/17 05:25 POC Glucose (mg/dL) 135 mg/dL (65-110) H 09/08/17 12:40 Random Glucose 102 mg/dL (65-105) 09/12/17 05:25 Calcium 8.7 mg/dL (8.4-10.2) 09/12/17 05:25 Blood Type O NEGATIVE 09/09/17 19:25 Antibody Screen Negative 09/09/17 19:25 Crossmatch See Detail 09/09/17 19:25 BBK History Checked Patient has bt 09/09/17 19:25 - Hospital Course Hospital Course: 66 YO female with PMHx of prediabetes admitted for R hip pain, s/p R total hip replacement (POD4). Hospital stay complicated by symptomatic anemia post-op requiring 2 units of PRBC. H/H stable post transfusion, FOBT neg. Pain management has been optimized, pt is doing well, working with PT/OT inpatient and is scheduled for outpatient PT in [facility]. Pt to be d/c home with follow up with Dr. Borjas in 7-10 days and follow up in [facility] with Dr. Short on 09/23/17 @ 11:00AM. Will d/c home with Lovenox 40 sc x 6 more days (10 days total per Ortho ), Tylenol, Tramadol and Percocet (<5 days). Meds: Acetaminophen (Tylenol 325mg Tab) Docusate Sodium (Colace) 100 mg PO BID [facility] Enoxaparin Sodium (Lovenox) 40 mg SC DAILY [facility] Tramadol HCl (Ultram) 50 mg PO Q6 [facility] Percocet 5/325mg PO PRN pain Discharge Exam - Head Exam Head Exam: NORMAL INSPECTION - Eye Exam Eye Exam: EOMI - ENT Exam ENT Exam: Mucous Membranes Moist - Respiratory Exam Respiratory Exam: Clear to PA & Lateral, NORMAL BREATHING PATTERN. absent: Chest Wall Tenderness, Wheezes - Cardiovascular Exam Cardiovascular Exam: REGULAR RHYTHM, +S1, +S2 - GI/Abdominal Exam GI & Abdominal Exam: Normal Bowel Sounds, Soft. absent: Tenderness - Extremities Exam Additional comments: edema, mild erythema in R hip, improved from previously Small blisters around tape site-healing moving R feet, pain with movement Full ROM in LLE, baseline hip pain from osteo. - Back Exam Back exam: NORMAL INSPECTION - Neurological Exam Neurological exam: Alert, Oriented x3 - Psychiatric Exam Psychiatric exam: Normal Affect, Normal Mood Discharge Plan - Discharge Medications Prescriptions: Docusate [Colace] 100 mg PO BID #10 cap Enoxaparin [Lovenox] 40 mg SC DAILY 6 Days #1 syr oxyCODONE/Acetaminophen [Percocet 5/325 mg Tab] 1 ea PO Q8 #12 tab traMADol [Ultram] 50 mg PO Q6 #15 tab - Follow Up Plan Condition: FAIR Disposition: HOME/ ROUTINE Patient education suggested?: Yes Instructions: Osteoarthritis (DC), Total Hip Replacement (DC), Anterior Hip Replacement (DC), Getting Your Home Ready for Knee and or Hip Surgery Additional Instructions: Outpatient Physical Therapy at [facility]: [phone] Call to set up appointment To set up transport, call admitting dept: [phone] to obtain authorization number. Once authorization obtained call transport [phone] to schedule pickup Follow up in [facility] with Dr. Short on 09/23/17 @11:00AM Follow up with Dr. Choi in 7-10 days. Referrals: Minor Choi III, MD [Staff Provider] - Ean Brown MD [Primary Care Provider] -
== END 2017-09-12 18:55 | disposition home or self-care (01) | DRG 470 ==
LOC: H.ER 05:21 → H.ERHOLD 05:47 → H.MEDSURG1 15:11
PROVIDERS: ADMIT Family Medicine Geriatric Medicine; ATTEND Family Medicine Geriatric Medicine
PROC: 0SR90JZ Replacement of Right Hip Joint with Synthetic Substitute, Open Approach (ICD-10-PCS; principal; 2017-09-08 07:45)
PROC: 30233N1 Transfusion of Nonautologous Red Blood Cells into Peripheral Vein, Percutaneous Approach (ICD-10-PCS; 2017-09-10)
DX: M16.0 Bilateral primary osteoarthritis of hip (principal); D62 Acute posthemorrhagic anemia; D72.829 Elevated white blood cell count, unspecified; I10 Essential (primary) hypertension; K59.00 Constipation, unspecified; M06.9 Rheumatoid arthritis, unspecified; R73.03 Prediabetes; Z82.49 Family history of ischemic heart disease and other diseases of the circulatory system; H26.9 Unspecified cataract

== ENCOUNTER 2017-09-15 05:08 | Emergency (ER) | payer SELFPAY ==
[2017-09-15 05:41] VITALS: O2SAT 100
[2017-09-15 06:06] LABS: BASO # 0.1 K/uL (0.0-0.2); EOS # 0.3 K/uL (0.0-0.7); EOS % 3.5 % (0.0-4.0); HEMOGLOBIN 10.3 g/dL (12.0-16.0); LYMPH # 1.5 K/uL (1.0-4.3); LYMPH % 18.2 % (20.0-40.0); MEAN CELL VOLUME 92.2 fl (81.0-99.0); MEAN CORPUSCULAR HGB CONC 33.6 g/dL (33.0-37.0); MEAN PLATELET VOLUME 7.4 fl (7.2-11.7); MONO % 12.7 % (0.0-10.0); NEUT # 5.3 K/uL (1.8-7.0); NEUT % 64.6 % (50.0-75.0); RBC 3.33 Mil/uL (3.80-5.20); RED CELL DISTRIBUTION WIDTH 17.4 % (11.5-14.5); WHITE BLOOD COUNT 8.2 K/uL (4.8-10.8)
[2017-09-15 06:14] LABS: PARTIAL THROMBOPLASTIN TIME 29.8 Seconds (25.6-37.1)
[2017-09-15] MEDS ORDERED: Sodium Chloride 0.9% 50 ML IV ONE (06:17)
[2017-09-15] MEDS ORDERED: Iodixanol 320 MG/ML 100 ML BOTTLE IV ONE (06:18)
[2017-09-15 06:37] LABS: BLOOD UREA NITROGEN 13 mg/dl (7-17); CALCIUM 9.3 mg/dL (8.4-10.2); GFR AFRICAN-AMERICAN > 60; GFR NON-AFRICAN AMERICAN > 60
--- NOTE | 2017-09-15 06:45 | ED PDOC ---
HPI: General Adult Time Seen by Provider: 09/15/17 05:20 Chief Complaint (Nursing): Shortness Of Breath History Per: Patient History/Exam Limitations: no limitations Onset/Duration Of Symptoms: Days Current Symptoms Are (Timing): Still Present Additional Complaint(s): Hx of pre-DM, recent hip surgery presenting with RLE swelling and SOB, was discharged 3 days ago after hip surgery, states that the RLE swelling is starting to go down but yesterday was complaining of shortenss of breath and sweats. Family relates that Dr. Armas encouraged patient to come to ER sooner but patient initially refused. Currently patient denies any chest pain or shortness of breath. Past Medical History Vital Signs: Last Vital Signs Temp 97.9 F 09/15/17 05:29 Pulse 79 09/15/17 05:29 Resp 18 09/15/17 05:55 BP 105/53 L 09/15/17 05:29 Pulse Ox 100 09/15/17 05:55 - Medical History PMH: Arthritis (severe osteoarthritis of bilateral hips R>L), HTN - Family History Family History: States: Unknown Family Hx - Home Medications Home Medications: Ambulatory Orders Medication Instructions Recorded Docusate [Colace] 100 mg PO BID #10 cap 09/12/17 Enoxaparin [Lovenox] 40 mg SC DAILY 6 Days #1 syr 09/12/17 oxyCODONE/Acetaminophen [Percocet 1 ea PO Q8 #12 tab 09/12/17 5/325 mg Tab] traMADol [Ultram] 50 mg PO Q6 #15 tab 09/12/17 - Allergies Allergies/Adverse Reactions: Allergies Allergy/AdvReac Type Severity Reaction Status Date / Time aspirin Allergy SHORTNESS Verified 10/18/16 12:06 OF BREATH ibuprofen Allergy SHORTNESS Verified 09/08/17 08:35 OF BREATH Review of Systems ROS Statement: Except As Marked, All Systems Reviewed And Found Negative Respiratory: Positive for: Shortness of Breath Musculoskeletal: Positive for: Leg Pain Physical Exam - Reviewed Nursing Documentation Reviewed: Yes Vital Signs Reviewed: Yes - Physical Exam Appears: Positive for: Non-toxic, No Acute Distress, Uncomfortable Head Exam: Positive for: ATRAUMATIC, NORMAL INSPECTION, NORMOCEPHALIC Skin: Positive for: Normal Color, Warm, DRY Eye Exam: Positive for: EOMI, Normal appearance, PERRL ENT: Positive for: Normal ENT Inspection Neck: Positive for: Normal, Painless ROM Cardiovascular/Chest: Positive for: Regular Rate, Rhythm Respiratory: Positive for: CNT, Normal Breath Sounds Gastrointestinal/Abdominal: Positive for: Normal Exam, Soft Back: Positive for: Normal Inspection Extremity: Positive for: Normal ROM, Swelling (RLE with swelling to thigh and distal, no calf tenderness, no erthema, surgical site appears clean and intact, NV intact distally, warm and well perfused). Negative for: Tenderness Neurologic/Psych: Positive for: Alert, Oriented - Laboratory Results Result Diagrams: 09/15/17 05:37 09/15/17 05:37 - ECG O2 Sat by Pulse Oximetry: 100 Pulse Ox Interpretation: Normal Medical Decision Making Medical Decision MakinAM A/P: Hx of pre-DM and recent surgery presenting with RLE pain and swelling, SOB (resolved) -patient appears well, vitals stable -swelling maybe physiologic secondary to surgery, possibly secondary to DVT- will get dopplers -given history of SOB, will get CT Angio to r/o PE 7AM Will endorse to Dr. Saha pending workup completion and re-evaluation. Disposition - Clinical Impression Clinical Impression: Leg pain - Patient ED Disposition Is Patient to be Admitted: Transfer of Care - Disposition Referrals: Ean Brown MD [Primary Care Provider] - Disposition: Transfer of Care Disposition Time: 07:00 Condition: STABLE Patient Signed Over To: Cat Saha Y Handoff Comments: pending U/S, CT, and re-eval
--- NOTE | 2017-09-15 07:11 | ED PDOC ---
- Laboratory Results Result Diagrams: 09/15/17 05:37 09/15/17 05:37 - ECG O2 Sat by Pulse Oximetry: 100 Medical Decision Making Medical Decision Making: Time: 07:00 Patient care endorsed to Dr. Saha from Dr. Alaniz pending US and CT angio. US Time: 09:42 FINDINGS: COMMON FEMORAL VEIN: Unremarkable. SUPERFICIAL FEMORAL VEIN: Unremarkable. POPLITEAL VEIN: Unremarkable. POSTERIOR TIBIAL VEIN: Unremarkable. OTHER FINDINGS: None. IMPRESSION: No evidence of deep venous thrombosis in the right lower extremity. Chest CT 10:22 FINDINGS: PULMONARY ARTERIES: The visualized pulmonary trunk, right and left main, lobar, segmental and proximal subsegmental branches of the pulmonary arteries are well opacified with no definitive filling defects seen to suggest acute pulmonary embolus. Pulmonary trunk measures approximately 2.2 cm. AORTA: No acute findings. No thoracic aortic aneurysm. LUNGS: Mild localized atelectatic. There are also mild linear scarring changes of both lung bases including the lingular and middle lobe regions. PLEURAL SPACES: Unremarkable. No effusion or pneumothorax . HEART: Heart size upper limits of normal. . No significant pericardial effusion. Ascending thoracic aorta measures approximately 2.7 cm and descending thoracic aorta measures approximately 1.9 cm. LYMPH NODES: No significant mediastinal or hilar adenopathy. Central airways midline and patent. No large the central endoluminal lesions. BONES, CHEST WALL: Unremarkable. No fracture or destructive lesion OTHER FINDINGS: Unremarkable. IMPRESSION: No evidence of acute pulmonary embolus. Mild atelectatic/scarring changes both lung bases including the lingular and middle lobe regions. Time: 11:07 Discussed result findings with Dr. Choi, who agrees to send her home after hip X ray results. 12:57 Hip X-Ray FINDINGS: BONES: Status post total right hip replacement. . Hardware intact and appropriately located. JOINTS: Normal. SOFT TISSUES: Residual postoperative changes within soft tissues of the infiltration and subcutaneous air . There are overlying skin closure savanna unchanged. OTHER FINDINGS: Oral contrast material presumably related to CTA chest obtained earlier same day opacifies the urinary bladder Overlying tubular artifact. IMPRESSION: Status post right total hip replacement without complication. Expected residual unremarkable postoperative changes as above. . 13:03 --Patient's anemia at baseline. Pt has an appointment with clinic tomorrow. 13:05 --Upon provider reevaluation patient is feeling better, is medically stable, and requires no further treatment in the ED at this time. Patient will be discharged home. Counseling was provided and all questions were answered regarding diagnosis and need for follow up with PMD. There is agreement to discharge plan. Return if symptoms persist or worsen. Scribe Attestation: Vijay Mckoy acting as a scribe for Cat Saha MD. Scribe Attestation: All medical record entries made by the Scribe were at my direction and personally dictated by me. I have reviewed the chart and agree that the record accurately reflects my personal performance of the history, physical exam, medical decision making, and the department course for this patient. I have also personally directed, reviewed, and agree with the discharge instructions and disposition. Disposition Counseled Patient/Family Regarding: Studies Performed, Diagnosis, Need For Followup - Clinical Impression Clinical Impression: Leg pain - POA Present On Arrival: None - Disposition Referrals: Ean Brown MD [Primary Care Provider] - Disposition: Routine/Home Disposition Time: 12:05 Condition: IMPROVED Additional Instructions: follow up in the clinic tomorrow return to the ED with any worsening or concerning symptoms Instructions: Dependent Edema (DC) Forms: [employer] (Iranian) Print Language: LATVIAN
--- NOTE | 2017-09-15 09:44 | US ---
PROCEDURE: Right lower extremity venous duplex Doppler. HISTORY: r/o DVT COMPARISON: None available. TECHNIQUE: Common femoral, superficial femoral, popliteal and posterior tibial veins were evaluated. Flow was assessed with color Doppler, compressibility, assessment of phasic flow and augmentation response. FINDINGS: COMMON FEMORAL VEIN: Unremarkable. SUPERFICIAL FEMORAL VEIN: Unremarkable. POPLITEAL VEIN: Unremarkable. POSTERIOR TIBIAL VEIN: Unremarkable. OTHER FINDINGS: None. IMPRESSION: No evidence of deep venous thrombosis in the right lower extremity.
--- NOTE | 2017-09-15 10:24 | CT ---
PROCEDURE: CT Chest with contrast (Pulmonary Angiogram) HISTORY: Rule out PE. COMPARISON: Comparison made with chest radiograph dated 08/11/2017. . TECHNIQUE: Axial computed tomography images were obtained of the chest in the pulmonary arterial phase of enhancement. Coronal and sagittal reformatted images were created and reviewed. Intravenous contrast dose: Approximately 70 cc Visipaque 320 Radiation dose: Total exam DLP = 242.64 mGy-cm. This CT exam was performed using one or more of the following dose reduction techniques: Automated exposure control, adjustment of the mA and/or kV according to patient size, and/or use of iterative reconstruction technique. FINDINGS: PULMONARY ARTERIES: The visualized pulmonary trunk, right and left main, lobar, segmental and proximal subsegmental branches of the pulmonary arteries are well opacified with no definitive filling defects seen to suggest acute pulmonary embolus. Pulmonary trunk measures approximately 2.2 cm. AORTA: No acute findings. No thoracic aortic aneurysm. LUNGS: Mild localized atelectatic. There are also mild linear scarring changes of both lung bases including the lingular and middle lobe regions. PLEURAL SPACES: Unremarkable. No effusion or pneumothorax . HEART: Heart size upper limits of normal. . No significant pericardial effusion. Ascending thoracic aorta measures approximately 2.7 cm and descending thoracic aorta measures approximately 1.9 cm. LYMPH NODES: No significant mediastinal or hilar adenopathy. Central airways midline and patent. No large the central endoluminal lesions. BONES, CHEST WALL: Unremarkable. No fracture or destructive lesion OTHER FINDINGS: Unremarkable. IMPRESSION: No evidence of acute pulmonary embolus. Mild atelectatic/scarring changes both lung bases including the lingular and middle lobe regions.
--- NOTE | 2017-09-15 12:59 | RAD ---
PROCEDURE: Right Hip Radiographs. HISTORY: sp hip surgery COMPARISON: Comparison made with prior study 09/08/2017. FINDINGS: BONES: Status post total right hip replacement. . Hardware intact and appropriately located. JOINTS: Normal. SOFT TISSUES: Residual postoperative changes within soft tissues of the infiltration and subcutaneous air . There are overlying skin closure savanna unchanged. OTHER FINDINGS: Oral contrast material presumably related to CTA chest obtained earlier same day opacifies the urinary bladder Overlying tubular artifact. IMPRESSION: Status post right total hip replacement without complication. Expected residual unremarkable postoperative changes as above. .
[2017-09-15 13:34] VITALS: TEMP 98.2
[2017-09-15 14:13] VITALS: BP 156/90; PULSE 92; RESP 14
== END 2017-09-15 13:15 | disposition home or self-care (01) ==
LOC: H.ER 05:08
DX: R06.02 Shortness of breath (principal); R22.41 Localized swelling, mass and lump, right lower limb; D64.9 Anemia, unspecified; I10 Essential (primary) hypertension; Z96.641 Presence of right artificial hip joint
CPT/HCPCS: 71275; 73502; 80048; 85025; 85610; 85730; 93971; 96374; 96376; 99285; J2270; Q9967